=== PATIENT | female | born 1940 | race African-American/Black ===

== ENCOUNTER 2018-11-15 19:04 | Inpatient (IN) | payer MEDICARE, BC ==
[~2018-11-15] VITALS: Ht 167.6 cm; Wt 81.6 kg
[2018-11-15] MEDS ORDERED: SODIUM CHLORIDE 0.9% 1,000 ML IV ONE (20:07)
[2018-11-15] MEDS ORDERED: DEXTROSE 50% WATER 50ML SYRINGE IV ONE (20:15)
[2018-11-15 20:32] LABS: BASOPHILS % 0.2 % (0.0-2.0); HEMATOCRIT. 44.2 % (36.0-48.0); HEMOGLOBIN. 14.7 g/dL (12.0-16.0); LYMPHOCYTES % 9.3 % (20.0-50.0); MEAN CORPUSCULAR HEMOGLOBIN 33.1 pg (28.0-32.0); MEAN CORPUSCULAR VOLUME 99.4 fL (81.0-99.0); MEAN PLATELET VOLUME 7.4 fl (7.4-10.4); MONOCYTES % 8.2 % (2.0-8.0); NEUTROPHILS % 81.3 % (40.0-76.0); PLATELET 232 x1000/uL (130-400); RED BLOOD CELL COUNT 4.44 mill/uL (4.2-5.4); RED CELL DISTRIBUTION WIDTH 14.5 % (11.6-14.6)
[2018-11-15 20:33] LABS: CHLORIDE 104 mEq/L (98-107)
[2018-11-15 20:34] LABS: INR 1.1; PARTIAL THROMBOPLASTIN TIME 31.8 sec (23.4-31.0); PROTHROMBIN TIME 11.5 sec (9.6-11.0)
[2018-11-15 20:51] LABS: CLARITY URINE CLEAR (CLEAR); COLOR URINE YELLOW (YELLOW); KETONES URINE NEGATIVE (NEGATIVE); LEUKOCYTE ESTERASE URINE NEGATIVE (NEGATIVE); NITRITE URINE NEGATIVE (NEGATIVE); OCCULT BLOOD URINE NEGATIVE (NEGATIVE); PROTEIN URINE NEGATIVE (NEGATIVE); SPECIFIC GRAVITY URINE 1.019 (1.005-1.030)
[2018-11-15] MEDS ORDERED: LEVOFLOXACIN 750MG PREMIX 150 ML IV ONE (22:30)
[2018-11-15] MEDS ORDERED: SODIUM CHLORIDE 0.9% 1000ML BAG (SEPSIS BOLUS) IV ONE (22:30)
[2018-11-15] MEDS ORDERED: DIPHENHYDRAMINE 50MG/ML VIAL IV PRN (23:30)
[2018-11-15] MEDS ORDERED: ACETAMINOPHEN 650MG/20.3ML UDC GT PRN (23:30)
[2018-11-15] MEDS ORDERED: ACETAMINOPHEN 325MG TABLET PO PRN (23:30)
[2018-11-15] MEDS ORDERED: NA PHOS,M-B/NA PHOS,DI-BA ENEMA 118ML PR PRN (23:30)
[2018-11-15] MEDS ORDERED: ACETAMINOPHEN 650MG SUPP PR PRN (23:30)
[2018-11-15] MEDS ORDERED: ONDANSETRON HCL 4MG/2ML INJ IV PRN (23:30)
[2018-11-15] MEDS ORDERED: GUAIFENESIN 200MG/10ML SUGAR FREE UDC PO PRN (23:30)
[2018-11-15] MEDS ORDERED: DOCUSATE SODIUM 100MG CAPSULE PO PRN (23:30)
[2018-11-15] MEDS ORDERED: MAGNESIUM/ALUMINUM HYDROXIDE/SIMETHICONE 30ML UDC PO PRN (23:30)
[2018-11-15] MEDS ORDERED: CLONIDINE 0.1MG TABLET PO PRN (23:30)
[2018-11-15] MEDS ORDERED: IPRATROPIUM/ALBUTEROL 0.5-3(2.5)MG/3ML NEB INH PRN (23:30)
[2018-11-15 23:52] LABS: CLARITY URINE CLEAR (CLEAR); COLOR URINE YELLOW (YELLOW); KETONES URINE NEGATIVE (NEGATIVE); LEUKOCYTE ESTERASE URINE NEGATIVE (NEGATIVE); NITRITE URINE NEGATIVE (NEGATIVE); OCCULT BLOOD URINE NEGATIVE (NEGATIVE); PH URINE 6.5 (4.5-8.0); PROTEIN URINE NEGATIVE (NEGATIVE); SPECIFIC GRAVITY URINE 1.008 (1.005-1.030)
[2018-11-16 01:00] VITALS: BP 108/52
[2018-11-16 01:29] VITALS: BP 108/82
[2018-11-16] MEDS ORDERED: CLOP75TA4 PO (01:32)
[2018-11-16] MEDS ORDERED: ASPI-1393 PO (01:32)
[2018-11-16] MEDS ORDERED: DEXT 5%/0.45% NACL 1000ML 1,000 ML IV SCH (02:00)
[2018-11-16 04:00] VITALS: BP 138/61
[2018-11-16] MEDS ORDERED: DEXTROSE 50% WATER 50ML SYRINGE IV PRN (05:00)
[2018-11-16] MEDS: BLOOD SUGAR DIAGNOSTIC STRIP TEST SCH ×3 (06:21→17:20)
[2018-11-16] MEDS: SODIUM CHLORIDE 0.9% INJ 3ML FLUSH IVF SCH ×2 (06:32→13:18)
[2018-11-16] MEDS: INSULIN LISPRO 100 UNITS/ML SUBCUT SCH ×3 (07:50→17:50)
[2018-11-16 08:37] LABS: *AMPHETAMINES SCREEN URINE NEGATIVE (NEGATIVE); *BARBITURATES SCREEN URINE NEGATIVE (NEGATIVE); *BENZODIAZEPINES SCREEN URINE NEGATIVE (NEGATIVE)
[2018-11-16 08:38] LABS: *COCAINE SCREEN URINE NEGATIVE (NEGATIVE); CANNABINOID URINE SCREEN NEGATIVE (NEGATIVE); METHADONE URINE SCREEN NEGATIVE (NEGATIVE); OPIATES URINE SCREEN NEGATIVE (NEGATIVE); PHENCYCLIDINE URINE SCREEN NEGATIVE (NEGATIVE)
[2018-11-16] MEDS ORDERED: ENOXAPARIN 40MG/0.4ML SYR SUBCUT SCH (09:00)
[2018-11-16 09:17] LABS: BASOPHILS % 0.3 % (0.0-2.0); EOSINOPHILS % 1.9 % (0.0-5.0); HEMATOCRIT. 38.5 % (36.0-48.0); HEMOGLOBIN. 12.9 g/dL (12.0-16.0); MEAN CORPUSCULAR VOLUME 98.6 fL (81.0-99.0); MONOCYTES % 9.5 % (2.0-8.0); NEUTROPHILS % 65.3 % (40.0-76.0); PLATELET 200 x1000/uL (130-400); RED BLOOD CELL COUNT 3.91 mill/uL (4.2-5.4); RED CELL DISTRIBUTION WIDTH 14.3 % (11.6-14.6)
[2018-11-16 09:42] LABS: CHLORIDE 108 mEq/L (98-107)
[2018-11-16 09:50] LABS: LDL CHOLESTEROL 37 mg/dL (5-100)
[2018-11-16 09:53] LABS: HDL CHOLESTEROL 44 mg/dL (40-59)
[2018-11-16] MEDS ORDERED: AMLO2.5T45 PO (13:57)
[2018-11-16] MEDS ORDERED: ALPR-339 PO (13:57)
[2018-11-16] MEDS ORDERED: ALEN70TA68 MT (13:57)
[2018-11-16] MEDS ORDERED: FURO20TA4 PO (18:13)
[2018-11-16] MEDS ORDERED: DICL100G31 TP (18:13)
[2018-11-16] MEDS ORDERED: NORCO PO (18:13)
[2018-11-16] MEDS ORDERED: CITA10SO PO (18:13)
[2018-11-16] MEDS ORDERED: HUM100IN SQ (18:13)
[2018-11-16] MEDS ORDERED: CELE-84 PO (18:13)
[2018-11-16] MEDS ORDERED: CITA10TA9 PO (18:13)
[2018-11-16 19:53] VITALS: BP 119/75
[2018-11-16 20:20] VITALS: BP 119/75
== END 2018-11-16 20:57 | disposition home or self-care (01) | DRG 639 ==
LOC: ER 19:04 → EDBEDREQ 23:03 → EDBEDREQTM 23:03 → ENRESERV 23:08 → 6WST 11-16 00:21
PROVIDERS: ADMIT Family Medicine; ATTEND Family Medicine
DX: E11.649 Type 2 diabetes mellitus with hypoglycemia without coma (principal); I10 Essential (primary) hypertension; I25.10 Atherosclerotic heart disease of native coronary artery without angina pectoris; Z95.5 Presence of coronary angioplasty implant and graft; Z79.82 Long term (current) use of aspirin; Z79.84 Long term (current) use of oral hypoglycemic drugs; Z79.899 Other long term (current) drug therapy
CPT/HCPCS: 36415; 71045; 80061; 80305; 82962; 83036; 83605; 83880; 84484; 93005; 96361; 96365; 96375; 99285; J1650; J1815; J1956; J7030; J7620